=== PATIENT | male | born 1975 | race Caucasian/White ===

== ENCOUNTER 2016-12-07 10:40 | Emergency (ER) | payer OTHER ==
[~2016-12-07] VITALS: Ht 177.8 cm; Wt 108.9 kg
[2016-12-07 11:05] VITALS: BP 150/104
== END 2016-12-07 11:33 | disposition home or self-care (01) ==
LOC: ER 10:40
DX: S40.012A Contusion of left shoulder, initial encounter (principal); S50.01XA Contusion of right elbow, initial encounter; V49.9XXA Car occupant (driver) (passenger) injured in unspecified traffic accident, initial encounter; Y93.89 Activity, other specified; Y99.8 Other external cause status; Y92.89 Other specified places as the place of occurrence of the external cause